=== PATIENT | female | born 1945 | race Caucasian/White ===

== ENCOUNTER → 2016-06-30 | Outpatient (CLI) | payer MEDICARE, OTHER ==
[~2016-06-30] VITALS: Ht 157.5 cm; Wt 92.1 kg
[~2016-06-30] MED LIST: ASPI81TA11 PO; ATOR1TAB19 PO; CETI10TA PO; COUM2.5T11 PO; HYDR-3644 OR; MELO15TA4 PO; NEXI40CA PO; NORT10CA2 PO; NS 1,000 ML IV SCH; PERCOCET PO; PROPOFOL 200 MG/20 ML VIAL As Ordered ONE; SUMA100T2 PO; TYLE325T5 PO; fluticasone spray
--- NOTE | 2016-06-30 12:13 | ROOR ---
Patient Name: Sepideh Knapp Procedure Date: 06/30/2016 11:54 AM Date of : 1945 Age: 71 Room: [facility] Gender: Female Note Status: Finalized Procedure: Upper GI endoscopy Indications: Suspected esophageal reflux Providers: Lars Fong Jr, MD Referring MD: Natalie Breaux NP Requesting Provider: Medicines: Propofol per Anesthesia Complications: No immediate complications. Procedure: Pre-Anesthesia Assessment: - Prior to the procedure, a History and Physical was performed, and patient medications and allergies were reviewed. The patient is competent. The risks and benefits of the procedure and the sedation options and risks were discussed with the patient. All questions were answered and informed consent was obtained. Patient identification and proposed procedure were verified by the physician and the nurse in the pre-procedure area and in the procedure room. Mental Status Examination: alert and oriented. Airway Examination: normal oropharyngeal airway and neck mobility. Respiratory Examination: clear to auscultation. CV Examination: normal. ASA Grade Assessment: II - A patient with mild systemic disease. After reviewing the risks and benefits, the patient was deemed in satisfactory condition to undergo the procedure. The anesthesia plan was to use moderate sedation / analgesia (conscious sedation). Immediately prior to administration of medications, the patient was re-assessed for adequacy to receive sedatives. The heart rate, respiratory rate, oxygen saturations, blood pressure, adequacy of pulmonary ventilation, and response to care were monitored throughout the procedure. The physical status of the patient was re-assessed after the procedure. The Endoscope was introduced through the mouth, and advanced to the duodenal bulb. The upper GI endoscopy was accomplished without difficulty. The patient tolerated the procedure well. Findings: The upper third of the esophagus, middle third of the esophagus and lower third of the esophagus were normal. A large hiatal hernia was present. Localized moderate inflammation characterized by congestion (edema), erythema and friability was found in the gastric body. Striped moderately erythematous mucosa without bleeding was found in the gastric antrum. The duodenal bulb and first portion of the duodenum were normal. Impression: - Normal upper third of esophagus, middle third of esophagus and lower third of esophagus. - Large hiatal hernia. - Gastritis. - Erythematous mucosa in the antrum. - Normal duodenal bulb and first portion of the duodenum. - No specimens collected. Recommendation: - Discharge patient to home (ambulatory). Lars Fong MD Lars Fong Jr, MD 06/30/2016 12:12:57 PM This report has been signed electronically. Number of Addenda: 0 Note Initiated On: 06/30/2016 11:54 AM Estimated Blood Loss: Estimated blood loss: none.
[2016-06-30 12:30] VITALS: BP 172/85
== END | disposition home or self-care (01) ==
LOC: M OPP 11:20
PROVIDERS: ATTEND Surgery
DX: K21.9 Gastro-esophageal reflux disease without esophagitis (principal); K44.9 Diaphragmatic hernia without obstruction or gangrene; K29.70 Gastritis, unspecified, without bleeding; K31.89 Other diseases of stomach and duodenum; I10 Essential (primary) hypertension; D64.9 Anemia, unspecified; M19.90 Unspecified osteoarthritis, unspecified site; G47.30 Sleep apnea, unspecified; E78.00 Pure hypercholesterolemia, unspecified; E66.9 Obesity, unspecified; Z79.899 Other long term (current) drug therapy; Z79.51 Long term (current) use of inhaled steroids; J30.2 Other seasonal allergic rhinitis

== ENCOUNTER → 2017-04-12 | Outpatient (CLI) | payer MEDICARE, OTHER ==
[2017-04-12 13:37] LABS: ANION GAP 9 MEQ/L (8-16); BLOOD UREA NITROGEN 20 MG/DL (7-18); CALCIUM LEVEL 9.3 MG/DL (8.8-10.2); CARBON DIOXIDE LEVEL 28 MEQ/L (21-32); CHLORIDE LEVEL 104 MEQ/L (98-107); CREATININE FOR GFR 0.51 MG/DL (0.55-1.02); GLOMERULAR FILTRATION RATE > 60.0 (>39); GLUCOSE, FASTING 93 MG/DL (83-110); POTASSIUM SERUM 4.1 MEQ/L (3.5-5.1); SODIUM LEVEL 141 MEQ/L (136-145)
== END ==
LOC: M SMT 11:10
DX: N13.30 Unspecified hydronephrosis (principal)
CPT/HCPCS: 80048

== ENCOUNTER → 2017-04-18 | Outpatient (CLI) | payer MEDICARE, OTHER ==
[~2017-04-18] MED LIST changes: -ASPI81TA11 PO; -ATOR1TAB19 PO; -CETI10TA PO; -COUM2.5T11 PO; -HYDR-3644 OR; +ISOVUE-370 76% 100ML VIAL (Q9967) As Ordered; -MELO15TA4 PO; -NEXI40CA PO; -NORT10CA2 PO; -NS 1,000 ML IV SCH; -PERCOCET PO; -PROPOFOL 200 MG/20 ML VIAL As Ordered ONE; -SUMA100T2 PO; -TYLE325T5 PO; -fluticasone spray
== END ==
LOC: M RAD 10:07
DX: N13.9 Obstructive and reflux uropathy, unspecified (principal)
CPT/HCPCS: Q9967

== ENCOUNTER 2017-05-11 11:49 | Day surgery (SDC) | payer MEDICARE, OTHER ==
[2017-05-11] MEDS: NS 1,000 ML IV (13:21)
[2017-05-11] MEDS ORDERED: LIDOCAINE 2% INJ 100 MG/5 ML SDV (FOR ANES.) As Ordered (13:57)
[2017-05-11] MEDS ORDERED: PROPOFOL 200 MG/20 ML VIAL As Ordered ×4 (13:57→14:34)
== END 2017-05-11 15:14 | disposition home or self-care (01) ==
LOC: M OPP 11:49
DX: D50.9 Iron deficiency anemia, unspecified (principal); R63.4 Abnormal weight loss; K22.70 Barrett's esophagus without dysplasia; K21.9 Gastro-esophageal reflux disease without esophagitis; R63.0 Anorexia; K57.30 Diverticulosis of large intestine without perforation or abscess without bleeding; K44.9 Diaphragmatic hernia without obstruction or gangrene; I10 Essential (primary) hypertension; E78.5 Hyperlipidemia, unspecified; R12 Heartburn; M19.90 Unspecified osteoarthritis, unspecified site; E66.9 Obesity, unspecified; G47.30 Sleep apnea, unspecified; R06.83 Snoring; N13.30 Unspecified hydronephrosis; Z87.440 Personal history of urinary (tract) infections; Z96.653 Presence of artificial knee joint, bilateral; Z96.642 Presence of left artificial hip joint; Z79.82 Long term (current) use of aspirin; Z79.899 Other long term (current) drug therapy
CPT/HCPCS: 45378

== ENCOUNTER → 2017-05-12 | Outpatient (REF) | payer MEDICARE, OTHER ==
[2017-05-12 14:12] LABS: BACTERIA, URINE SMALL AMOUNT; MUCUS, URINE SMALL AMOUNT (NEGATIVE); RBC, URINE 0-1 /hpf (0-3); SQUAMOUS EPITHELIAL CELL URINE SMALL AMOUNT /hpf (SMALL AMT); WBC, URINE 0-1 /hpf (0-3)
[2017-05-12 14:13] LABS: MICROSCOPIC EXAM PERFORMED
== END ==
LOC: M SMT 13:32
DX: N39.0 Urinary tract infection, site not specified (principal)
CPT/HCPCS: 81015

== ENCOUNTER → 2017-05-31 | Outpatient (CLI) | payer MEDICARE, OTHER ==
[~2017-05-31] MED LIST changes: +FUROSEMIDE 20 MG/2 ML VIAL (J1940) As Ordered; -ISOVUE-370 76% 100ML VIAL (Q9967) As Ordered
== END ==
LOC: M RAD 07:26
DX: N39.0 Urinary tract infection, site not specified (principal)
CPT/HCPCS: J1940

== ENCOUNTER → 2017-12-04 | Outpatient (CLI) | payer MEDICARE, OTHER ==
[2017-12-04 14:33] LABS: ANION GAP 6 MEQ/L (8-16); BLOOD UREA NITROGEN 18 MG/DL (7-18); CALCIUM LEVEL 9.1 MG/DL (8.8-10.2); CARBON DIOXIDE LEVEL 30 MEQ/L (21-32); CHLORIDE LEVEL 105 MEQ/L (98-107); CREATININE FOR GFR 0.53 MG/DL (0.55-1.30); GLOMERULAR FILTRATION RATE > 60.0 (>39); POTASSIUM SERUM 4.1 MEQ/L (3.5-5.1); SODIUM LEVEL 141 MEQ/L (136-145)
[2017-12-04 18:28] LABS: GLUCOSE, FASTING 95 MG/DL (70-100)
== END ==
LOC: M RAD 09:51
DX: N39.0 Urinary tract infection, site not specified (principal)
CPT/HCPCS: 76775

== ENCOUNTER → 2018-01-02 | Outpatient (CLI) | payer MEDICARE, OTHER ==
[2018-01-02 13:46] LABS: ANION GAP 7 MEQ/L (8-16); BLOOD UREA NITROGEN 15 MG/DL (7-18); CALCIUM LEVEL 8.9 MG/DL (8.8-10.2); CARBON DIOXIDE LEVEL 29 MEQ/L (21-32); CHLORIDE LEVEL 104 MEQ/L (98-107); CREATININE FOR GFR 0.52 MG/DL (0.55-1.30); GLOMERULAR FILTRATION RATE > 60.0 (>39); GLUCOSE, FASTING 87 MG/DL (70-100); POTASSIUM SERUM 4.7 MEQ/L (3.5-5.1); SODIUM LEVEL 140 MEQ/L (136-145)
== END ==
LOC: M SMT 09:35
DX: N39.0 Urinary tract infection, site not specified (principal)
CPT/HCPCS: 80048

== ENCOUNTER → 2018-01-11 | Outpatient (CLI) | payer MEDICARE, OTHER ==
[~2018-01-11] MED LIST changes: -FUROSEMIDE 20 MG/2 ML VIAL (J1940) As Ordered; +PROHANCE 279.3MG/ML 15ML VIAL (A9576) As Ordered; +PROHANCE 279.3MG/ML 5ML VIAL (A9576) As Ordered
== END ==
LOC: M RAD 14:47
DX: N13.30 Unspecified hydronephrosis (principal); N39.0 Urinary tract infection, site not specified; N39.41 Urge incontinence; R19.00 Intra-abdominal and pelvic swelling, mass and lump, unspecified site
CPT/HCPCS: A9576

== ENCOUNTER → 2018-01-22 | Outpatient (CLI) | payer MEDICARE, OTHER | LOC: M RAD 17:46 | DX: N39.0 Urinary tract infection, site not specified (principal); N39.41 Urge incontinence; N13.30 Unspecified hydronephrosis; R19.00 Intra-abdominal and pelvic swelling, mass and lump, unspecified site; K57.30 Diverticulosis of large intestine without perforation or abscess without bleeding; Z96.642 Presence of left artificial hip joint | CPT/HCPCS: A9576 ==

== ENCOUNTER → 2018-07-02 | Outpatient (CLI) | payer MEDICARE, OTHER ==
[~2018-07-02] MED LIST changes: +ASPI-225 PO; +ATOR1TAB19 PO; +CALC12504 PO; +CETI10TA PO; +COUM2.5T17 PO; +FISH500C PO; +FURO20TA2 PO; +HYDR-3644 OR; +MELO15TA28 PO; +NEXI40CA PO; +NORT10CA2 PO; +PERCOCET PO; -PROHANCE 279.3MG/ML 15ML VIAL (A9576) As Ordered; -PROHANCE 279.3MG/ML 5ML VIAL (A9576) As Ordered; +SING10TA32 PO; +SUMA100T2 PO; +TYLE325T5 PO; +VITA100066 PO; +fluticasone spray
== END ==
LOC: M LAB 13:47
PROVIDERS: ATTEND Internal Medicine Cardiovascular Disease
DX: I49.3 Ventricular premature depolarization (principal)

== ENCOUNTER → 2019-03-28 | Outpatient (CLI) | payer MEDICARE, OTHER ==
[~2019-03-28] MED LIST changes: -CALC12504 PO; +CALC500T61 PO; +FUROSEMIDE 20 MG/2 ML VIAL (J1940) As Ordered ONE
--- NOTE | 2019-03-28 13:46 | REP ---
NUCLEAR RENAL SCINTIGRAPHY WITH DIFFERENTIAL FLOW AND FUNCTION ANALYSIS AND LASIX VENOGRAPHY: HISTORY: Hydronephrosis left kidney. COMPARISON STUDY: May 31, 2017. Comparison CT study abdomen and pelvis February 27, 2019. TECHNIQUE: 8.8 mCi technetium 99m Mag 3 is injected and posterior flow and excretory phase images are acquired. Renal cortical regions of interest are drawn and time activity curves are plotted for renal function analysis. 20 mg of intravenous Lasix is administered and post Lasix venography washout scintigraphy is acquired. SCINTIGRAPHIC FINDINGS: Posterior flow study shows symmetric perfusion of the renal beds bilaterally. Excretory phase images show no evidence of intrarenal mass on either side. There is slight delay of renal parenchymal labeling on the left compared to the right. Intrarenal collecting system on the right as well labeled by the 3-minute marked and early intrarenal collecting system labeling is seen at this point on the left. There is moderate to marked left-sided hydronephrosis on subsequent images. No evidence of obstructive uropathy on the right. Differential renal function analysis is asymmetric with 37% of overall renal cortical counts coming from the left kidney compared to 63% from the right. This is more asymmetric than on the previous scan. Kdtu-[id number]-pklp activity is normal bilaterally measured at 2.0 minutes on the right and less than 2 minutes on the left. Nvhm-[id number]-gpip max activity is normal on the right at 9.5 minutes. There is a flat renal excretion curve on the left. Post Lasix venography demonstrates a [id number]-fx-[id number] max activity in the hydronephrotic left kidney of 24.6 minutes compared to 16.7 minutes on the nonobstructed right side. This actually represents some improvement from post Lasix venography May 31, 2017. IMPRESSION: Significant obstructive uropathy persists left kidney although there is some improvement in Lasix washout. Electronically Signed by Feliberto Warren MD 03/28/2019 02:06 P
== END ==
LOC: M RAD 09:48
PROVIDERS: ATTEND Urology
DX: N13.9 Obstructive and reflux uropathy, unspecified (principal); N13.30 Unspecified hydronephrosis
CPT/HCPCS: 78708; A9562; J1940

== ENCOUNTER → 2021-03-25 | Outpatient (CLI) | payer MEDICARE, OTHER ==
[~2021-03-25] MED LIST changes: -ASPI-225 PO; +ASPI81TA78 PO; -FUROSEMIDE 20 MG/2 ML VIAL (J1940) As Ordered ONE
--- NOTE | 2021-03-26 01:33 | REPVR ---
PROCEDURE INFORMATION: Exam: MR Lumbar Spine Without Contrast Exam date and time: 03/25/2021 1:51 PM Age: 75 years old Clinical indication: Low back pain; Additional info: Spondyls w/o myelopathy or radiculopathy, lumbosac TECHNIQUE: Imaging protocol: Multiplanar magnetic resonance images of the lumbar spine without intravenous contrast. COMPARISON: CT ABD/PELVIS W/O CONTRAST - OUTSIDE PRIOR 02/27/2019 9:11 AM FINDINGS: Vertebrae: Grade 1 retrolisthesis at L1-L2, L2-L3, and L3-L4. Grade 1 anterolisthesis at L5-S1. Advanced discogenic and facet degenerative changes. Reactive endplate edema at multiple levels. Spinal cord: Conus medullaris terminates in normal position at L1. No conus compression. L1-L2: Severe degenerative disc space narrowing with fluid signal in the disc space. Small broad-based posterior disc bulge without significant spinal stenosis. Moderate bilateral foraminal stenosis. L2-L3: Disc degeneration with disc space narrowing and broad based posterior disc bulge. Mild central spinal canal stenosis with left greater than right lateral recess stenosis and mass effect on the descending L3 nerve roots. Moderate to severe foraminal stenosis. L3-L4: Severe degenerative disc space narrowing with partial ankylosis of the disc space. Mild central spinal canal stenosis. No disc herniation. Severe foraminal stenosis. L4-L5: Severe degenerative disc space narrowing with large broad-based posterior disc protrusion and small annulus tear. Advanced facet DJD and hypertrophy. Severe central spinal canal stenosis with cauda equina compression. Severe bilateral foraminal stenosis, worse on the right where there is exiting nerve root compression. L5-S1: Broad-based posterior disc bulge and right foraminal disc protrusion causing severe foraminal stenosis with exiting nerve root compression. Mild left foraminal stenosis. Right lateral recess stenosis with mass effect on the S1 nerve root Soft tissues: Unremarkable. IMPRESSION: 1. Advanced degenerative spondylosis with severe central spinal stenosis with cauda equina compression at L4-L5. Severe bilateral foraminal stenosis at L4-L5 with compression of the right nerve root in the foramen. 2. Large disc protrusion in the right L5-S1 neural foramen compressing the right L5 nerve root. Right lateral recess stenosis with mass effect on the right S1 nerve root. 3. Mild-moderate central spinal stenosis at L1-L2 and L2-L3. Electronically signed by: Thor Domingo On 03/26/2021 01:33:06 AM
== END ==
LOC: M RAD 12:43
PROVIDERS: ATTEND Physician Assistant
DX: M47.817 Spondylosis without myelopathy or radiculopathy, lumbosacral region (principal)

== ENCOUNTER → 2022-03-09 | Outpatient (CLI) | payer MEDICARE, OTHER | LOC: M PLAIMG 10:10 | PROVIDERS: ATTEND Physician Assistant | DX: M47.896 Other spondylosis, lumbar region (principal); M51.16 Intervertebral disc disorders with radiculopathy, lumbar region; M48.061 Spinal stenosis, lumbar region without neurogenic claudication; M51.36 Other intervertebral disc degeneration, lumbar region ==